=== PATIENT | female | born 1990 | race Caucasian/White ===

== ENCOUNTER 2018-10-17 09:50 | Emergency (ER) | payer OTHER ==
[~2018-10-17] VITALS: Ht 154.9 cm; Wt 90.0 kg
--- OUTSIDE RECORDS SUMMARY | ~2018-10-17 | XMS | Clinical Summary ---
Demographics + + + | Address | NEED ADDRESS | | | [place] [address] | + + + | Home Phone | | + + + | Preferred Language | Unknown | + + + | Marital Status | Single | + + + | Yarsani Affiliation | Unknown | + + + | Race | Unknown | + + + | Ethnic Group | Unknown | + + + Author + + + | Author | [facility] | | | and [place] | + + + | Organization | [facility] | | | and [place] | + + + | Address | Unknown | + + + | Phone | Unavailable | + + + Support + + + + + | Name | Relationship | Address | Phone | + + + + + | Ayleen Li | ECON | [address] | | | | | [place] | | | | | [address] | | + + + + + Care Team Providers + +------+ + | Care Incident Analyst Name | Role | Phone | + +------+ + | No, Physician | PP | Unavailable | + +------+ + Allergies No Known Allergies Current Medications + + +--------+---------+------+------+-------+ | Prescription | Sig. | Disp. | Refills | Star | End | Statu | | | | | | t | Date | s | | | | | | Date | | | + + +--------+---------+------+------+-------+ | | Take 1-2 tablets by | 20 | 0 | 02/2 | | Activ | | HYDROcodone-acetamin | mouth every 4 hours | tablet | | 02/16 | | e | | ophen (NORCO) 5-325 | as needed for Pain. | | | 16 | | | | mg per tablet | | | | | | | + + +--------+---------+------+------+-------+ Active Problems + + + | Problem | Noted Date | + + + | Ureteral calculus, left | 09/25/2015 | + + + | Acute cystitis without hematuria | 09/25/2015 | + + + Family History + + +------+ + | Medical History | Relation | Name | Comments | + + +------+ + | Urolithiasis | Father | | | + + +------+ + + +------+--------+ + | Relation | Name | Status | Comments | + +------+--------+ + | Father | | Alive | | + +------+--------+ + Social History + +-------+ +--------+------+ | Tobacco Use | Types | Packs/Day | Years | Date | | | | | Used | | + +-------+ +--------+------+ | Current Every Day | | 0.25 | | | | Smoker | | | | | + +-------+ +--------+------+ + + | Tobacco Cessation: Ready to Quit: No | + + + + +---------+ + | Alcohol Use | Drinks/We | oz/Week | Comments | | | ek | | | + + +---------+ + | Yes | | | | + + +---------+ + + + + | Sex Assigned at | Date Recorded | | | | + + + | Not on file | | + + + Last Filed Vital Signs + + + + | Vital Sign | Reading | Time Taken | + + + + | Blood Pressure | 115/74 | 10/01/2015 0827 PST | + + + + | Pulse | 76 | 10/01/2015826 PST | + + + + | Temperature | 36.2 C (97.1 F) | 09/26/2015723 PST | + + + + | Respiratory Rate | 16 | 10/01/2015826 PST | + + + + | Oxygen Saturation | 94% | 09/26/2015723 PST | + + + + | Inhaled Oxygen | - | - | | Concentration | | | + + + + | Weight | 97.3 kg (214 lb 9.6 | 10/01/2015826 PST | | | oz) | | + + + + | Height | 154.9 cm (5' 1") | 10/01/2015826 PST | + + + + | Body Mass Index | 40.55 | 10/01/2015826 PST | + + + + Plan of Treatment + + + + + | Health Maintenance | Due Date | Last Done | Comments | + + + + + | Vaccine: | | | | | Dtap/Tdap/Td (1 - | 9 | | | | Tdap) | | | | + + + + + | Cervical Cancer | | | | | Screening (Pap) | 1 | | | + + + + + | Vaccine: Influenza | | | | | (#1) | 8 | | | + + + + + Implants + +------+--------+ +--------+--------+--------+ | Implanted | Type | Area | Manufacture | Device | Expira | Model | | | | | r | | tion | / | | | | | | Identi | Date | Serial | | | | | | fier | | / Lot | + +------+--------+ +--------+--------+--------+ | Stent Uro Unvrs Sft 7fr 26cm | | Left: | BUFFY BAER | | 07/03/ | [id number] | | - [id number]: Qty: 1 | | Ureter | INCORPORATE | | 2017 | / | | on 09/25/2015 by Radha | | | D | | | [id number] | | Nic Bueno MD | | | | | | 07 | + +------+--------+ +--------+--------+--------+ Results Not on filefrom Last 3 Months
--- OUTSIDE RECORDS SUMMARY | ~2018-10-17 | XMS | Clinical Summary ---
Demographics + + + | Address | NEED ADDRESS | | | [place] [address] | + + + | Home Phone | | + + + | Preferred Language | Unknown | + + + | Marital Status | Single | + + + | Scientology Affiliation | Unknown | + + + | Race | Unknown | + + + | Ethnic Group | Unknown | + + + Author + + + | Author | [facility] | | | and [place] | + + + | Organization | [facility] | | | and [place] | [...] [place] | | | | | [address] | | + + + + + Care Team Providers + +------+ + | Care Dry Kiln Loader Name | Role | Phone | + [...] | BUFFY BAER | | 07/03/ | [id number] | | - [id number]: Qty: 1 | | Ureter | INCORPORATE | | 2017 | / | | on 09/25/2015 by Radha | | | D | | | /[id number] | | Nic Bueno MD | | | | | | 07 | + +------+--------+ +--------+--------+--------+ Results Not on filefrom Last 3 Months
[2018-10-17] MEDS ORDERED: FLAGYL500 MG PO (10:04)
[2018-10-17] MEDS ORDERED: XULANE PATCH1 EACH TD (10:04)
[2018-10-17] MEDS ORDERED: ONDANSETRON ODT8 MG PO (12:47)
== END 2018-10-17 13:00 | disposition home or self-care (01) ==
LOC: ED 09:50
DX: R10.9 Unspecified abdominal pain (principal); Z87.891 Personal history of nicotine dependence; Z79.899 Other long term (current) drug therapy
CPT/HCPCS: 76775; 81001; 84703; 99284-25

== ENCOUNTER 2024-04-01 05:15 | Emergency (ER) | payer OTHER ==
[~2024-04-01] VITALS: Ht 154.9 cm; Wt 101.0 kg
[~2024-04-01 05:15] MED LIST: FLAGYL500 MG PO; FLUOXETINE HCL20 MG PO; MACROBID 100 M100 MG PO; ONDANSETRON ODT8 MG PO; PYRIDIUM100 MG PO; XULANE PATCH1 EACH TD
[2024-04-01] MEDS ORDERED: MORPHINE SULFATE 4 MG/ML VIAL IV ONE (05:45)
[2024-04-01] MEDS ORDERED: ondansetron HCL 4 MG/2 ML VIAL IV ONE (05:45)
[2024-04-01] MEDS ORDERED: SODIUM CHLORIDE 0.9% 1,000 ML IV ONE (05:45)
[2024-04-01 05:52] LABS: BASOPHILS 0.5 % (0-2); EOSINOPHILS 2.7 % (0-6); HEMATOCRIT 38.1 % (35.0-50.0); HEMOGLOBIN 13.3 g/dL (12.0-18.0); LYMPHOCYTES 36.4 % (24-44); MCH 29.9 (27-36); MCHC 34.8 g/dl (30-36); MCV 85.9 fl (81-99); MONOCYTES 3.8 % (0-12); NEUTROPHILS 56.6 % (39-80); PLATELET COUNT 304 K/uL (140-440); RBC 4.44 M/ul (4.3-5.7); RDW 13.6 (10.5-15.0)
[2024-04-01] MEDS ORDERED: ACETAMINOPHEN 325 MG TAB PO ONE (06:00)
[2024-04-01] MEDS ORDERED: KETOROLAC TROMETHAMINE 30 MG/ML VIAL IV ONE (06:00)
[2024-04-01 06:04] LABS: ALBUMIN 3.2 g/dL (3.4-5.0); ALBUMIN/GLOBULIN RATIO 0.8 (1.1-2.4); ANION GAP 13.5 (7-21); BILIRUBIN, TOTAL 0.4 ng/dL (0.2-1.0); BUN/CREATININE RATIO 14.66 (6.0-28.6); CALCIUM 8.8 mg/dL (8.5-10.1); CREATININE, SERUM 0.75 mg/dL (0.55-1.02); POTASSIUM 3.5 mmol/L (3.5-5.1); PROTEIN, TOTAL 7.2 g/dL (6.4-8.2)
[2024-04-01 06:20] LABS: BACTERIA, URINE RARE /hpf (negative); CASTS, URINE NONE SEEN \\lpf; COLLECTION TYPE, URINE CLEAN CATCH; CRYSTALS, URINE NONE SEEN (0-1+); EPITHELIAL CELLS, URINE SQUAMOUS 2+ /lpf (0-1+); REFLEX CULTURE, URINE No (No)
[2024-04-01] MEDS ORDERED: PERCOCET 5-3251 EACH PO (07:35)
[2024-04-01] MEDS ORDERED: CEFDINIR300 MG PO (07:36)
[2024-04-01] MEDS ORDERED: ONDANSETRON ODT8 MG PO (07:36)
[2024-04-01] MEDS ORDERED: FLOMAX0.4 MG PO (07:40)
[2024-04-01 07:50] VITALS: BP 1222/87
== END 2024-04-01 07:50 | disposition home or self-care (01) ==
LOC: ED 05:15
PROVIDERS: Family Medicine
DX: N13.2 Hydronephrosis with renal and ureteral calculous obstruction (principal); Z87.891 Personal history of nicotine dependence; Z79.899 Other long term (current) drug therapy
CPT/HCPCS: 36415; 74176; 80053; 81001; 83605; 84703; 85025; 87040; 96374; 96375; 99284-25; A9270; J1885; J2270; J2405; J7030